=== PATIENT | male | born 1975 | race Caucasian/White ===

== ENCOUNTER 2016-05-31 14:53 | Emergency (ER) | payer OTHER ==
[~2016-05-31] VITALS: Ht 188 cm; Wt 90.7 kg
[~2016-05-31 14:53] MED LIST: AUGMENTIN 875-1 EACH PO; CITRATE OF1.75 GM/30 PO; CLONIDINE HCL0.1 MG PO; COLACE100 M1 PO; DEPAKOTE250 MG PO; DILAUDID2 M1 PO; DILAUDID2 MG PO; DOXYCYCLINE MO100 MG PO; FLEXERIL10 MG PO; IBUPROFEN800 M1 PO; INDOMETHACIN50 M1 PO; KLONOPIN0.5 M1 PO; LIORESAL 10MG T10 MG PO; MEDROL4 M1 PO; MEDROL4 M2 PO; METHADONE HYDRO10 MG PO; MIRALAX17 GM PO; OXYCODONE HCL5 M1 PO; PERCOCET 5-3251 EACH PO; REGLAN10 M1 PO; SEN-O-TABS8.6 MG PO; SUMATRIPTA6 MG/0.51; SUMATRIPTA6 MG/0.52; VOLTAREN75 MG PO; ZOFRAN ODT4 M1 PO; ZOFRAN ODT4 MG PO
--- NOTE | 2016-05-31 17:39 | ED UPPER/LOWER EXTREMITY COMPL ---
History of Present Illness General Chief Complaint: Lower Extremity Problems Stated Complaint: LEFT KNEE MASS Source: patient Exam Limitations: no limitations Vital Signs & Intake/Output Vital Signs & Intake/Output Vital Signs Date Time Temp Pulse Resp B/P Pulse O2 O2 Flow FiO2 Ox Delivery Rate 05/31 1927 97.0 96 18 120/78 96 05/31 1724 98 Room Air 05/31 1505 99.3 102 22 124/90 98 Room Air Allergies Coded Allergies: walnut (DYSPNEA 02/17/16) Reconcile Medications Clonazepam (Klonopin) 0.5 MG TABLET 1 TAB PO QPM ANXIETY (Reported) Clonidine HCl 0.1 MG TABLET 1 TAB PO TID PRN WITHDRAWL Docusate Sodium (Colace) 100 MG CAPSULE 1 CAP PO BID STOOL SOFTENER (Reported ) Hydroxyzine Pamoate (Vistaril) 50 MG CAPSULE 1 CAP PO QPM PRN INSOMNIA Ibuprofen 800 MG TABLET 1 TAB PO TID PRN PAIN Indomethacin 50 MG CAPSULE 1 CAP PO TID PRN pain with food Ketorolac Tromethamine 10 MG TABLET 1 TAB PO TID PRN PAIN METHADONE HCL (Methadone Hydrochloride) 10 MG TABLET 10 MG PO 4 TIMES/DAY PAIN (Reported) Methylprednisolone. (Medrol) 4 MG TAB.DS.PK 1 DP PO AD INFLAMMATION Metoclopramide HCl (Reglan) 10 MG TABLET 1 TAB PO 4 TIMES/DAY PRN NAUSEA 30 minutes before meals and bedtime Oxycodone HCl 5 MG TABLET 1 TAB PO 6XDAILY PAIN (Reported) Sumatriptan Succinate 6 MG/0.5 ML PEN.INJCTR 6 MG AD PRN MIGRAINES (Reported) Triage Note: PER PT L KNEE ?MASS TOLD BY [facility] TO HAVE AN MRI, PT HERE FOR 2ND OPINION, WOULD LIKE MRI PT AWARE OF WT TIME. ALSO REPORTS 20 LB WT LOSS IN 2 MONTHS Triage Nurses Notes Reviewed? yes Onset: Gradual Duration: constant Timing: recent history Severity: severe Severity Numbers: 7 HPI: Patient is a 40-year-old male who presents emergency room with a history of approximately 4-5 months of a left knee and ankle injury in which she stated that a large object fell on the inside part of his left knee and ankle which he' s been complaining of pain since. Patient states that he follow-up with the [facility] and was concerned of a "mass" to the left knee. Patient has been taking Suboxone for his pain. Patient denies any exacerbation or mechanism of injury Since. Patient states that when he was originally injured a few months ago he did not seek medical attention and has been walking on it and complaining of worsening pain. Patient does use a cane. (JANEY VARGAS) Past History Travel History Traveled to [place] past 21 day No Medical History Any Pertinent Medical History? 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 No (JANEY VARGAS) Review of Systems Review of Systems Constitutional: Reports: no symptoms. EENTM: Reports: no symptoms. Respiratory: Reports: no symptoms. Cardiovascular: Reports: no symptoms. Gastrointestinal/Abdominal: Reports: no symptoms. Genitourinary: Reports: no symptoms. Musculoskeletal: Reports: see HPI, joint pain, joint swelling. Skin: Reports: no symptoms. Neurological/Psychological: Reports: no symptoms. Hematologic/Endocrine: Reports: no symptoms. Immunological: Reports: no symptoms. All Other Systems: Reviewed and Negative (JANEY VARGAS) Physical Exam Physical Exam General Appearance: well developed/nourished, no apparent distress, alert Neurologic/Tendon: normal sensation, normal motor functions, normal tendon functions, responds to pain, no evidence tendon injury, no pulse deficit Skin: intact, normal color, warm/dry Comments: Well-developed well-nourished no apparent distress. HEENT: Atraumatic, extraocular motion intact Neck: Supple, no lymphadenopathy Back: Nontender Respiratory: No respiratory distress Extremities: Left hip normal inspection for to range of motion nontender Left knee normal inspection, full active range of motion noted medial joint line point tenderness. No erythema no warmth no swelling Negative valgus stress test negative varus stress tests Negative anterior drawer test negative posterior drawer test. Left ankle normal inspection tenderness to the medial malleoli full active range of motion noted Left foot normal inspection nontender Left leg dermatomes intact Neuro: Alert and oriented x3 Psych: Mood affect normal, normal memory normal judgment. (JANEY VARGAS) Progress Differential Diagnosis: arterial insufficiency, compartment syndrome, contusion, dislocation, DVT, fracture, gout, septic arthritis, sprain, tendon injury Plan of Care: Orders Procedure Date/time Status Regular Diet 06/01 B Active Durable Medical Equipment 05/31 1907 Active Patient does state that he had a remote history of injury in which x-ray showed concerns of a slow delayed healing to the medial aspect of patient's joint line where patient was tender. Patient was offered crutches and nonweightbearing status was advised. Patient was given copies of x-rays to follow[facility] with [facility]. Patient also was asking for medications to improve his sleep was offered however he declined this medication of the prescription. Upon discharge patient looks WELL NAD and will comply discharge instructions and had no questions. (JANEY VARGAS) Diagnostic Imaging: Viewed by Me: Radiology Read. Radiology Impression: SEE COMMENTS Comments: PATIENT: AMBER DELGADO PRESENT AGE: 40 PATIENT ACCOUNT NO: [id number] : 75 LOCATION: [facility] ORDERING PHYSICIAN: JANEY MCCARTHY SERVICE DATE: 05/31/16 EXAM TYPE: RAD - XRY-KNEE COMPLETE LEFT EXAMINATION: XR KNEE, LEFT CLINICAL INFORMATION: Medial knee pain. COMPARISON: Left knee 01/18/2016. TECHNIQUE: 4 views. FINDINGS: There is coarse periosteal reaction at the metaphysis of the tibia at the medial side of the bone. The underlying bone shows transverse radiolucency with surrounding sclerosis. Appearance appears to be of an incomplete fracture with evidence of healing. This is new since the exam of 01/18/2016. IMPRESSION: Coarse periosteal reaction with adjacent transverse radiolucency at the metaphysis at the medial side of the tibia consistent with an incomplete healing fracture. Correlate with history. PATIENT: AMBER DELGADO PRESENT AGE: 40 PATIENT ACCOUNT NO: [id number] : 75 LOCATION: [facility] ORDERING PHYSICIAN: JANEY MCCARTHY SERVICE DATE: 05/31/16 EXAM TYPE: RAD - XRY-KNEE COMPLETE LEFT EXAMINATION: XR KNEE, LEFT CLINICAL INFORMATION: Medial knee pain. COMPARISON: Left knee 01/18/2016. TECHNIQUE: 4 views. FINDINGS: There is coarse periosteal reaction at the metaphysis of the tibia at the medial side of the bone. The underlying bone shows transverse radiolucency with surrounding sclerosis. Appearance appears to be of an incomplete fracture with evidence of healing. This is new since the exam of 01/18/2016. IMPRESSION: Coarse periosteal reaction with adjacent transverse radiolucency at the metaphysis at the medial side of the tibia consistent with an incomplete healing fracture. Correlate with history. (JANEY VARGAS) Departure Departure Disposition: HOME OR SELF CARE Condition: Stable Clinical Impression Primary Impression: Left knee pain Secondary Impressions: Insomnia Referrals: ARAM HELMS,ASHLEY CLARK (PCP/Family) Additional Instructions: As discussed BEGIN TO ICE THE area directly 20 minutes every 2 hours. Begin the prescription OF ketorolac for pain and inflammation. Please follow-up with your established [facility] provider tomorrow for further EVALUATION and treatment and please give them copies of the x-rays provided to an emergency room. YOUR prescriptions waiting at the [facility] pharmacy. Begin a prescription of Vistaril to help you sleep. If symptoms worsen return to emergency room. Begin using the crutches and walk without pain. Departure Forms: Customer Survey General Discharge Information Prescriptions: Current Visit Scripts Hydroxyzine Pamoate (Vistaril) 1 CAP PO QPM PRN INSOMNIA #15 CAP Ketorolac Tromethamine 1 TAB PO TID PRN PAIN #15 TAB (JANEY VARGAS) PA/COLOR ADVISER Co-Sign Statement Statement: ED Attending supervision documentation- [] I saw and evaluated the patient. I have also reviewed all the pertinent lab results and diagnostic results. I agree with the findings and the plan of care as documented in the PA's/COLOR ADVISER's documentation. [X] I have reviewed the ED Record and agree with the PA's/COLOR ADVISER's documentation. [] Additions or exceptions (if any) to the PAs/COLOR ADVISER's note and plan are summarized below: [] (LUIS HELMS,AMBER Quijano)
--- NOTE | 2016-05-31 18:50 | RADIOLOGY REPORT ---
EXAMINATION: XR KNEE, LEFT CLINICAL INFORMATION: Medial knee pain. COMPARISON: Left knee 01/18/2016. TECHNIQUE: 4 views. FINDINGS: There is coarse periosteal reaction at the metaphysis of the tibia at the medial side of the bone. The underlying bone shows transverse radiolucency with surrounding sclerosis. Appearance appears to be of an incomplete fracture with evidence of healing. This is new since the exam of 01/18/2016. IMPRESSION: Coarse periosteal reaction with adjacent transverse radiolucency at the metaphysis at the medial side of the tibia consistent with an incomplete healing fracture. Correlate with history.
--- NOTE | 2016-05-31 18:51 | RADIOLOGY REPORT ---
EXAMINATION: XR ANKLE, LEFT CLINICAL INFORMATION: Left ankle pain. COMPARISON: Plain films of the left ankle 12/25/2012. TECHNIQUE: AP, lateral, and mortise views of the left ankle. FINDINGS: The bones and soft tissues are normal. No fracture. Alignment is anatomic. Joint spaces are maintained. No joint effusion. IMPRESSION: No acute fracture or dislocation of the left ankle.
[2016-05-31] MEDS ORDERED: VISTARIL50 M1 PO (19:09)
[2016-05-31] MEDS ORDERED: KETOROLAC TROME10 M1 PO (19:09)
[2016-05-31 19:27] VITALS: BP 120/78
[2016-10-29] MEDS ORDERED: ALPRAZOLAM1 M2 PO (11:16)
[2016-10-29] MEDS ORDERED: BACLOFEN20 M1 PO (13:49)
[2016-10-29] MEDS ORDERED: KETOROLAC TROME10 M1 PO (13:49)
== END 2016-05-31 19:29 ==
LOC: ERH 14:53
DX: M25.562 Pain in left knee (principal); G47.00 Insomnia, unspecified
CPT/HCPCS: 73562-LT; 73610-LT; 96372; J1885

== ENCOUNTER 2016-06-26 10:34 | Emergency (ER) | payer OTHER ==
[~2016-06-26] VITALS: Ht 188 cm; Wt 95.3 kg
[~2016-06-26 10:34] MED LIST changes: +KETOROLAC TROME10 M1 PO; +VISTARIL50 M1 PO
[2016-06-26 11:00] VITALS: BP 161/49
--- NOTE | 2016-06-26 11:25 | ED UPPER/LOWER EXTREMITY COMPL ---
History of Present Illness General Chief Complaint: Lower Extremity Problems Stated Complaint: LEG PAIN Source: patient Exam Limitations: no limitations Vital Signs & Intake/Output Vital Signs & Intake/Output Vital Signs Date Time Temp Pulse Resp B/P Pulse O2 O2 Flow FiO2 Ox Delivery Rate 06/26 1100 96.9 98 20 161/49 97 Room Air Room Air Allergies Coded Allergies: walnut (DYSPNEA 02/17/16) Reconcile Medications Clonazepam (Klonopin) 0.5 MG TABLET 1 TAB PO QPM ANXIETY (Reported) Clonidine HCl 0.1 MG TABLET 1 TAB PO TID PRN WITHDRAWL Docusate Sodium (Colace) 100 MG CAPSULE 1 CAP PO BID STOOL SOFTENER (Reported ) Hydroxyzine Pamoate (Vistaril) 50 MG CAPSULE 1 CAP PO QPM PRN INSOMNIA Ibuprofen 800 MG TABLET 1 TAB PO TID PRN PAIN Indomethacin 50 MG CAPSULE 1 CAP PO TID PRN pain with food Ketorolac Tromethamine 10 MG TABLET 1 TAB PO TID PRN PAIN METHADONE HCL (Methadone Hydrochloride) 10 MG TABLET 10 MG PO 4 TIMES/DAY PAIN (Reported) Methylprednisolone. (Medrol) 4 MG TAB.DS.PK 1 DP PO AD INFLAMMATION Metoclopramide HCl (Reglan) 10 MG TABLET 1 TAB PO 4 TIMES/DAY PRN NAUSEA 30 minutes before meals and bedtime Oxycodone HCl 5 MG TABLET 1 TAB PO 6XDAILY PAIN (Reported) Sumatriptan Succinate 6 MG/0.5 ML PEN.INJCTR 6 MG AD PRN MIGRAINES (Reported) Triage Note: PT TO ED "I HAVE CHRONIC PAIN, [facility], THEY ARE NOT CALLING ME BACK, I'M ON SUBOXONE FOR PAIN MANAGEMENT, AND I'M OUT OF IT, I'M GOING TO GO BACK ON METHADONE". I HAVE AN APPT ON SATURDAY. Triage Nurses Notes Reviewed? yes Onset: Gradual Duration: worse persistent since (2 DAYS) Timing: recent history Severity: moderate Severity Numbers: 8 Pain/Injury Location: Bilateral: Leg. Method of Injury: unknown Modifying Factors: Improves With: immobilization. HPI: Patient is a 40-year-old male presenting to the emergency department with chief complaint of chronic left leg pain. He reports he takes Suboxone for chronic pain. He is 2 days short, due to have a refill of his prescription for Saturday. He has yet to take his dose for today. Denies any nausea or vomiting. He does report that he is getting a migraine headache at this time for which she takes Imitrex. He tried calling his primary care physician but has not heard back yet. Denies any urinary incontinence or retention. No numbness or tingling. (BRENDEN CARDOSO) Past History Travel History Traveled to [place] past 21 day No Medical History Any Pertinent Medical History? 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 No (BRENDEN CARDOSO) Review of Systems Review of Systems Constitutional: Reports: no symptoms. Comments Review of systems: See HPI, All other systems negative. Constitutional, no chills fever or weight loss HEENT: No visual changes no sore throat no congestion Cardiovascular: No chest pain ,palpitation Skin, no jaundice no rashes Respiratory: No dyspnea cough sputum or hemoptysis GI: No nausea no vomiting : No dysuria No hematuria Muscle skeletal: no neck pain, Neurologic: No numbness no confusion Psych: No stress anxiety Immunology: No splenectomy or history of AIDS (BRENDEN CARDOSO) Physical Exam Physical Exam General Appearance: well developed/nourished, no apparent distress, alert, awake , comfortable Comments: Well-developed well-nourished person in no acute distress HEENT: . Pupils equally round and reactive to light and accommodation. Nose is atraumatic. Neck: Supple, no lymphadenopathy, normal range of motion without pain or tenderness Back: Tender to palpation in the lumbar paraspinal region. No bony tenderness. Cardiovascular:, normal JVP Respiratory: No respiratory distress. Extremity: No edema, no calf tenderness to palpation, limited range of motion of left Lorenza secondary to pain. Walks with a cane, limp favoring the left leg. Neuro: Alert oriented x3, motor sensory normal Skin: No appreciable rash on exposed skin, skin is warm and dry. Psych: Mood and affect is normal, memory and judgment is normal. (BRENDEN CARDOSO) Progress Differential Diagnosis: contusion, dislocation, fracture, sprain, CHRONIC PAIN, SPRAIN, CONTUSION, MEDICATION REFILL Plan of Care: Current Medications Sig/Josselin Start time Last Medication Dose Stop Time Status Admin Hydromorphone HCl 2 MG ONCE ONE 06/26 1129 AC (Dilaudid) 06/26 1130 Ketorolac 30 MG ONE ONE 06/26 1129 AC Tromethamine 06/26 1130 (Toradol) Sumatriptan Succinate 6 MG ONE ONE 06/26 1129 AC (Imitrex 6MG Per 06/26 1130 0.5ML Inj) Comments: Patient given dose of Imitrex for chronic migraines, also given by mouth dose of Percocet and IM Toradol. He is to follow-up with primary care physician. I told him I would not be able to provide him with a refill prescription for Suboxone or chronic pain. (BRENDEN CARDOSO) Departure Departure Time of Disposition: 1125 Disposition: HOME OR SELF CARE Condition: Stable Clinical Impression Primary Impression: Chronic pain Qualifiers: Chronic pain type: other chronic pain Qualified Code: G89.29 - Other chronic pain Referrals: ARAM HELMS,ASHLEY CLARK (PCP/Family) Additional Instructions: Follow-up with your primary care physician call to make an appointment. Continue taking Suboxone as prescribed. Return for worsening symptoms or concerns. Use [id number] Tylenol or Motrin help with other pain. Departure Forms: Customer Survey General Discharge Information (BRNEDEN CARDOSO) PA/BEER COIL CLEANER Co-Sign Statement Statement: ED Attending supervision documentation- [] I saw and evaluated the patient. I have also reviewed all the pertinent lab results and diagnostic results. I agree with the findings and the plan of care as documented in the PA's/BEER COIL CLEANER's documentation. x I have reviewed the ED Record and agree with the PA's/BEER COIL CLEANER's documentation. [] Additions or exceptions (if any) to the PAs/BEER COIL CLEANER's note and plan are summarized below: [] (JIMMY HELMS,KASSIDY)
[2016-10-29] MEDS ORDERED: ALPRAZOLAM1 M2 PO (11:16)
[2016-10-29] MEDS ORDERED: KETOROLAC TROME10 M1 PO (13:49)
[2016-10-29] MEDS ORDERED: BACLOFEN20 M1 PO (13:49)
== END 2016-06-26 11:42 ==
LOC: ERH 10:34
DX: G89.29 Other chronic pain (principal)
CPT/HCPCS: 96372; J3030

== ENCOUNTER 2016-07-02 15:08 | Emergency (ER) | payer OTHER ==
[~2016-07-02] VITALS: Ht 182.9 cm; Wt 95.3 kg
[2016-07-02 15:35] VITALS: BP 111/72
[2016-07-02] MEDS ORDERED: SUBOXONE 8 MG-1 EACH SL (16:30)
--- NOTE | 2016-07-02 16:30 | ED MVC/FALL/TRAUMA COMPLAINT ---
History of Present Illness General Chief Complaint: Fall Stated Complaint: FALL X 3 DAYS AGO, +HIT HEAD, -LOC, DIZZINESS Source: patient, old records Exam Limitations: no limitations Vital Signs & Intake/Output Vital Signs & Intake/Output Vital Signs Date Time Temp Pulse Resp B/P Pulse O2 O2 Flow FiO2 Ox Delivery Rate 07/02 1535 97.9 97 18 111/72 97 Room Air Allergies Coded Allergies: walnut (DYSPNEA, RASH 07/02/16) Reconcile Medications Buprenorphine HCl/Naloxone HCl (Suboxone 8 MG-2 MG Sl Film) 8 MG-2 MG FILM 1 STR SL 4 TIMES/DAY CHRONIC PAIN (Reported) Docusate Sodium (Colace) 100 MG CAPSULE 1 CAP PO BID STOOL SOFTENER (Reported ) Doxepin HCl 10 MG CAPSULE 1 CAP PO BID PTSD (Reported) Doxylamine Succinate (Unisom) (Unknown Strength) TABLET 2 TAB PO PRN SLEEP ( Reported) Gabapentin 400 MG CAPSULE 1 CAP PO AD UNKNOWN (Reported) Ibuprofen 800 MG TABLET 1 TAB PO TID PRN PAIN Quetiapine Fumarate (Seroquel) 100 MG TABLET 0.5 TAB PO QPM SLEEP (Reported) Sumatriptan Succinate 6 MG/0.5 ML PEN.INJCTR 6 MG AD PRN MIGRAINES (Reported) Triage Note: PT REPORTS FALLING ON ICE 3 DAYS AGO AND HITTIN HIS HEAD AND LEFT ARM. REPORTS FEELING DIZZY SINCE. DENIED NAUSEA OR VOMITING. Triage Nurses Notes Reviewed? yes HPI: 40-year-old male with chronic pain history on Suboxone here with complaints of a fall and head injury that occurred 3 days ago. 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 This occurred 3 days ago, also scraped his left elbow. He was then seen by his primary care doctor who evaluated him. No testing was deemed required as per the patient. He, today, started having worsening headache which is consistent with a migraine headaches and usually has and he is out of his usual Imitrex. He takes 6 mg subcutaneous of Imitrex several times per month Whenever He has migraine headaches. He feels as though he is getting a migraine headache and is asking for a injection of Imitrex and Toradol which was given to him a few weeks ago as well last time he was here with good relief. He denies any confusion, he denies any nausea, there is no vomiting, his headache is mild and typical migraines. He has a small abrasion noted to the left side of the scalp without any active bleeding. (STARLA MCCRARY) Past History Travel History Traveled to [place] past 21 day No Medical History Any Pertinent Medical History? 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 No (STARLA MCCRARY) Review of Systems Review of Systems Constitutional: Reports: see HPI. Eyes: Reports: no symptoms. Ears, Nose, Throat, Mouth: Reports: no symptoms. Respiratory: Reports: no symptoms. Cardiovascular: Reports: no symptoms. Gastrointestinal/Abdominal: Reports: no symptoms. Genitourinary: Reports: no symptoms. Musculoskeletal: Reports: no symptoms. Skin: Reports: no symptoms. Neurological/Psychological: Reports: see HPI. All Other Systems: Reviewed and Negative (STARLA MCCRARY) Physical Exam Physical Exam General Appearance: well developed/nourished Comments: Well-developed well-nourished no apparent distress. HEENT: Small abrasion to the left side lateral temporal region of the scalp. There is no surrounding erythema or induration, no crepitus. There is a scab noted in the areas well-healing. Pupils equally round and reactive to light, extraocular motion intact Neck: Supple, no lymphadenopathy, nontender full range of motion Back: Nontender Respiratory: No respiratory distress Extremities: No edema, full range of motion Neuro: Alert and oriented x3, cranial nerves II through XII grossly intact, gait and coordination is intact Psych: Mood affect normal, normal memory normal judgment. Skin: Warm and dry, no rash on exposed skin Core Measures ACS in differential dx? No Severe Sepsis Present: No Septic Shock Present: No (STARLA MCCRARY) Progress Differential Diagnosis: aoritic dissection, abd injury, C/T/L spine injury, ext injury, ICH, pelvis injury, pnemothorax, spinal cord injury Plan of Care: Current Medications Sig/Josselin Start time Last Medication Dose Stop Time Status Admin Ketorolac 30 MG ONCE ONE 07/02 1630 UNVr Tromethamine 07/02 1631 (Toradol) Sumatriptan Succinate 6 MG ONE ONE 07/02 1630 UNVr (Imitrex 6MG Per 07/02 1631 0.5ML Inj) Comments: tx with imitrex and toradol IM. I do not feel as though patient requires a CT scan of his head, he is acting normally, injury was 3 days ago, he is not on blood thinners. He is not confused. He'll return with any concerns (STARLA MCCRARY) Departure Departure Disposition: HOME OR SELF CARE Condition: Stable Clinical Impression Primary Impression: Minor head injury Qualifiers: Encounter type: initial encounter Qualified Code: S00.90XA - Unspecified superficial injury of unspecified part of head, initial encounter Secondary Impressions: Migraine headache Qualifiers: Migraine type: without aura Status migrainosus presence: without status migrainosus Intractability: not intractable Qualified Code: G43.009 - Migraine without aura, not intractable, without status migrainosus Referrals: ARAM HELMS,ASHLEY CLARK (PCP/Family) Additional Instructions: RETURN FOR RE EVALUTION WITH WOSRENING/SEVERE HEADACHES, NAUSEA, VOMITING OR CONFUSION. Departure Forms: Customer Survey General Discharge Information (STARLA MCCRARY) PA/WATER RESOURCE AGENT Co-Sign Statement Statement: ED Attending supervision documentation- [] I saw and evaluated the patient. I have also reviewed all the pertinent lab results and diagnostic results. I agree with the findings and the plan of care as documented in the PA's/WATER RESOURCE AGENT's documentation. [X I have reviewed the ED Record and agree with the PA's/WATER RESOURCE AGENT's documentation. [] Additions or exceptions (if any) to the PAs/WATER RESOURCE AGENT's note and plan are summarized below: [] (VANNESSA PARKER DO)
[2016-07-02] MEDS ORDERED: GABAPENTIN400 M2 PO (16:31)
[2016-07-02] MEDS ORDERED: SEROQUEL100 M1 PO (16:32)
[2016-07-02] MEDS ORDERED: DOXEPIN HCL10 MG PO (16:35)
[2016-07-02] MEDS ORDERED: UNISOM25 M1 PO (16:37)
[2016-10-29] MEDS ORDERED: ALPRAZOLAM1 M2 PO (11:16)
[2016-10-29] MEDS ORDERED: BACLOFEN20 M1 PO (13:49)
[2016-10-29] MEDS ORDERED: KETOROLAC TROME10 M1 PO (13:49)
== END 2016-07-02 16:45 ==
LOC: ERH 15:08
DX: S09.90XA Unspecified injury of head, initial encounter (principal); G43.909 Migraine, unspecified, not intractable, without status migrainosus; W19.XXXA Unspecified fall, initial encounter
CPT/HCPCS: 96372; J1885; J3030

== ENCOUNTER 2016-07-14 16:37 | Emergency (ER) | payer OTHER ==
[~2016-07-14] VITALS: Ht 189.2 cm; Wt 93.0 kg
[~2016-07-14 16:37] MED LIST changes: +DOXEPIN HCL10 MG PO; +GABAPENTIN400 M2 PO; +SEROQUEL100 M1 PO; +SUBOXONE 8 MG-1 EACH SL; +UNISOM25 M1 PO
[2016-07-14 16:49] VITALS: BP 126/88
--- NOTE | 2016-07-14 17:29 | ED GENERAL ADULT ---
History of Present Illness General Chief Complaint: Headache Stated Complaint: MED REFILL OR SHOT OF IMITREX Source: patient Exam Limitations: no limitations Vital Signs & Intake/Output Vital Signs & Intake/Output Vital Signs Date Time Temp Pulse Resp B/P Pulse O2 O2 Flow FiO2 Ox Delivery Rate 07/14 1647 98.5 110 20 126/88 96 Room Air Allergies Coded Allergies: walnut (Severe, DYSPNEA, RASH 07/14/16) Reconcile Medications Buprenorphine HCl/Naloxone HCl (Suboxone 8 MG-2 MG Sl Film) 8 MG-2 MG FILM 1 STR SL 4 TIMES/DAY CHRONIC PAIN (Reported) Buprenorphine HCl/Naloxone HCl (Suboxone 8 MG-2 MG Sl Film) 8 MG-2 MG FILM 1 STR SL DAILY CHRONIC PAIN (Reported) Docusate Sodium (Colace) 100 MG CAPSULE 1 CAP PO BID STOOL SOFTENER (Reported ) Doxepin HCl 10 MG CAPSULE 1 CAP PO BID PTSD (Reported) Doxylamine Succinate (Unisom) (Unknown Strength) TABLET 2 TAB PO PRN SLEEP ( Reported) Gabapentin 400 MG CAPSULE 1 CAP PO AD UNKNOWN (Reported) Ibuprofen 800 MG TABLET 1 TAB PO TID PRN PAIN Quetiapine Fumarate (Seroquel) 100 MG TABLET 0.5 TAB PO QPM SLEEP (Reported) Sumatriptan Succinate 6 MG/0.5 ML PEN.INJCTR 6 MG AD PRN MIGRAINES (Reported) Triage Note: TRIAGE: PT TO ER C/C MIGRAINE HEADACHE, RAN OUT OF IMITREX. Triage Nurses Notes Reviewed? yes HPI: 40-year-old man with multiple medical problems seen for evaluation of migraine/ headache. He states that he is [facility] his [facility] secondary to his previous "broken neck". He is provided a prescription of Imitrex consisting of 4 pills over 30 days, which she reports is not enough. He has a follow-up appointment "this coming Saturday/ Saturday"for which he will receive a new prescription. He also expresses multiple pain complaints throughout his body for which he is requesting "a shot of something". The headaches feel like they are starting in his neck and radiating up to his head and above his years and are constant throbbing without any associated aura. He tried taking 3 100 mg ibuprofen earlier today with no relief. No aggravating factors. Otherwise he denies any fever, chills, blurred /double vision, lightheadedness/dizziness, chest pain, palpitations, shortness of breath, nausea, vomiting, diarrhea, numbness/tingling. (SUHA PARSONS MD) Past History Travel History Traveled to [place] past 21 day No Medical History Any Pertinent Medical History? 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 No (SUHA PARSONS MD) Review of Systems Review of Systems Constitutional: Reports: see HPI. (SUHA PARSONS MD) Physical Exam Physical Exam General Appearance: well developed/nourished, mild distress Comments: General -well-developed, well-nourished middle-aged man in no acute distress HEENT - NCAT, PERRL, EOMI, anicteric sclera, moist mucous membranes Cardio - S1, S2 w/o murmurs/gallops/rubs Resp - CTA bilaterally w/o wheezing/rhochi/crackles GI - soft, nontender, nondistended, bowel sounds present Neuro - Awake and alert, CN II - XII grossly intact Extremities - no edema, pulses intact Core Measures ACS in differential dx? No CVA/TIA Diagnosis: No Severe Sepsis Present: No Septic Shock Present: No (SUHA PARSONS MD) Progress Differential Diagnoses I considered the following diagnoses in my evaluation of the patient: Headache, migraine Plan of Care: Current Medications Sig/Josselin Start time Last Medication Dose Stop Time Status Admin Sumatriptan Succinate 25 MG ONCE ONE 07/14 1814 CAN (Imitrex TAB) 07/14 1815 Initial ED EKG: none Comments: Given patient's history of multiple pain complaints previously maintained on methadone, now on Suboxone seen for evaluation of migraine that is not responsive to NSAID medications it is reasonable to believe that patient is having a migraine. His history of present illness and description of his headache do not clearly fit the definition of a migraine, however he reports adequate response to triptan medications for these headaches in the past. (SUHA PARSONS MD) Departure Departure Disposition: HOME OR SELF CARE Condition: Stable Clinical Impression Primary Impression: Headache Qualifiers: Headache type: tension-type Headache chronicity pattern: acute headache Intractability: intractable Qualified Code: G44.201 - Tension-type headache, unspecified, intractable Referrals: ARAM HELMS,ASHLEY CLARK (PCP/Family) Additional Instructions: [facility] and a renewal of her Imitrex medication. Call 911 or return to the ED should your symptoms worsen or if you develop fever , confusion. Departure Forms: Customer Survey General Discharge Information (SUHA PARSONS MD) Resident Co-Sign Statement Statement: ED Attending supervision documentation- [x] I saw and evaluated the patient. I have also reviewed all the pertinent lab results and diagnostic results. I agree with the findings and the plan of care as documented in the Resident's documentation. [] I have reviewed the ED Record and agree with the Resident's documentation. [] Additions or exceptions (if any) to the Resident's note and plan are summarized below: [] (LAURYN HELMS,VANNESSA Reveles) Critical Care Note Critical Care Note Critical Care Time: non-applicable (SUHA PARSONS MD)
[2016-07-14] MEDS ORDERED: SUBOXONE 8 MG-1 EACH SL (18:06)
[2016-10-29] MEDS ORDERED: ALPRAZOLAM1 M2 PO (11:16)
[2016-10-29] MEDS ORDERED: KETOROLAC TROME10 M1 PO (13:49)
[2016-10-29] MEDS ORDERED: BACLOFEN20 M1 PO (13:49)
== END 2016-07-14 18:31 ==
LOC: ERH 16:37
DX: R51 Headache (principal)
CPT/HCPCS: 96372; J1885; J3030

== ENCOUNTER 2016-08-17 11:40 | Emergency (ER) | payer OTHER ==
[~2016-08-17] VITALS: Ht 188 cm; Wt 102.1 kg
[2016-08-17 11:45] VITALS: BP 136/86
--- NOTE | 2016-08-17 11:55 | ED UPPER/LOWER EXTREMITY COMPL ---
History of Present Illness General Chief Complaint: Lower Extremity Injury Stated Complaint: L LEG PAIN Source: patient, old records Exam Limitations: no limitations Vital Signs & Intake/Output Vital Signs & Intake/Output Vital Signs Date Time Temp Pulse Resp B/P Pulse O2 O2 Flow FiO2 Ox Delivery Rate 08/17 1145 97.0 96 20 136/86 97 Room Air Allergies Coded Allergies: walnut (Severe, DYSPNEA, RASH 07/14/16) Reconcile Medications Buprenorphine HCl/Naloxone HCl (Suboxone 8 MG-2 MG Sl Film) 8 MG-2 MG FILM 1 STR SL 4 TIMES/DAY CHRONIC PAIN (Reported) Doxepin HCl 10 MG CAPSULE 1 CAP PO BID PTSD (Reported) Gabapentin 400 MG CAPSULE 1 CAP PO AD UNKNOWN (Reported) Quetiapine Fumarate (Seroquel) 100 MG TABLET 0.5 TAB PO QPM SLEEP (Reported) Triage Note: PT C/O LEFT KNEE AND LEFT LEG PAIN. [facility] AND WAS TOLD HE COULD HAVE CANCER. PAIN HAS BEEN ONGOING FOR 8 MONTHS, PT DENIES INJURY TO LEG Triage Nurses Notes Reviewed? yes Onset: Gradual Duration: X 8 MONTHS INTERMITTENT Timing: recent history Severity: mild, moderate Severity Numbers: 7 Pain/Injury Location: Left: Leg. Method of Injury: unknown No Modifying Factors: none Associated Symptoms: none HPI: 41-year-old male presents emergency room with history of chronic left leg pain that has been going on for the past 8 months, chronic neck and back pain currently on [facility] presents to emergency room today for evaluation complaining of exacerbation of his left knee and lower leg pain. He denies any new injury or trauma however states that he was doing some work yesterday and believes he may have overdid it. He denies any swelling to his knee. The pain is aching and throbbing intermittent in nature waxing and waning in intensity sudden in onset. He denies any rashes or swelling to his leg. There is no chest pain shortness of breath nausea or vomiting. The patient states that he's been here in the past Toradol IM has helped no numbness or tingling. The patient states he was initially told that it may be cancer in his leg however old records reviewed from previous x-rays have shown a possible incomplete healing fracture (SYD MCCARTHY,JANEY) Past History Travel History Traveled to [place] past 21 day No Medical History Any Pertinent Medical History? 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 No (JANEY YANCEY) Review of Systems Review of Systems Constitutional: Reports: see HPI. All Other Systems: Reviewed and Negative Comments Review of systems: See HPI, All other systems negative. Constitutional, no chills no fever, no malaise HEENT: No visual changes no sore throat no congestion Cardiovascular: No chest pain , no palpitation Skin, no rashes, no change in skin Respiratory: No dyspnea no cough no sputum GI: No nausea no vomiting, no diarrhea, : No dysuria No hematuria, Muscle skeletal: joint pain, no joint swelling, no back pain, no neck pain, Neurologic: No numbness no headache Psych: No stress Heme/endocrine: No bruising no bleeding Immunology: No lymphadenopathy (JANEY YANCEY) Physical Exam Physical Exam General Appearance: well developed/nourished, no apparent distress, alert, awake Comments: Well-developed well-nourished patient in no apparent distress. HEENT: Atraumatic, extraocular motion intact Neck: Supple, FROM, no lymphadenopathy Back: FROM, Nontender Cardiovascular: Regular rate and rhythms no murmurs rubs or gallops, Respiratory: Chest nontender.There were no bony deformities, no asymmetry. No respiratory distress. Patient speaking in full complete sentences. Breath sounds clear to auscultation bilaterally: NO W/R/R Upper Extremities: full range of motion Hip/Pelvis: Atraumatic/Stable. FROM. Knee: Atraumatic/stable. FROM. No joint swelling, no effusion. No laxity. No pain with ROM Leg: Atraumatic. Nontender. No edema, 5 out of 5 strength in the lower extremity, normal dorsiflexion of great toe bilaterally, gross sensation is intact, patellar tendon reflex 2+ bilaterally. Ankle/Foot: Atraumatic/stable. Skin intact. FROM. No swelling, no effusion. No laxity on exam Pulses: Normal/equal DP/PT pulses bilaterally. Brisk cap refill Neuro: Alert and oriented x3 Skin: Warm & dry;No appreciable rash on exposed skin Psych: Mood affect normal, normal memory normal judgment. (JANEY YANCEY) Progress Differential Diagnosis: cellulitis, compartment syndrome, contusion, dislocation , DVT, fracture, gout, sprain, tendon injury, MALIGNANCY Plan of Care: Old records reviewed patient is been seen numerous times in the past for similar symptoms x-rays from May 2016 were reviewed. The patient will be medicated with Toradol 60 mg IM I advised he have close follow-up with his primary care physician on Saturday, return with any concerns. Copy of his previous x-ray with right patient and he feels comfortable this plan I answered all his questions IMPRESSION: Coarse periosteal reaction with adjacent transverse radiolucency at the metaphysis at the medial side of the tibia consistent with an incomplete healing fracture. Correlate with history. DICTATED BY: DARA SELLERS MD DATE/TIME DICTATED:05/31/161843 [place]:TIMOTHY DATE/TIME TRANSCRIBED:05/31/161843 (JANEY YANCEY) Departure Departure Time of Disposition: 1205 Disposition: HOME OR SELF CARE Condition: Stable Clinical Impression Primary Impression: Chronic leg pain Referrals: ARAM HELMS,ASHLEY CLARK (PCP/Family) Additional Instructions: [facility] continue taking your medications as prescribed rest ice as needed.a copy of your previous xray is in your dsicharge paperwor Departure Forms: Customer Survey General Discharge Information (JANEY YANCEY) PA/IDENTIFICATION AND RECORDS COMMANDER Co-Sign Statement Statement: ED Attending supervision documentation- [] I saw and evaluated the patient. I have also reviewed all the pertinent lab results and diagnostic results. I agree with the findings and the plan of care as documented in the PA's/IDENTIFICATION AND RECORDS COMMANDER's documentation. [X] I have reviewed the ED Record and agree with the PA's/IDENTIFICATION AND RECORDS COMMANDER's documentation. [] Additions or exceptions (if any) to the PAs/IDENTIFICATION AND RECORDS COMMANDER's note and plan are summarized below: [] (VANNESSA PARKER DO
[2016-10-29] MEDS ORDERED: ALPRAZOLAM1 M2 PO (11:16)
[2016-10-29] MEDS ORDERED: KETOROLAC TROME10 M1 PO (13:49)
[2016-10-29] MEDS ORDERED: BACLOFEN20 M1 PO (13:49)
== END 2016-08-17 12:13 ==
LOC: ERH 11:40
DX: G89.29 Other chronic pain (principal); M79.605 Pain in left leg
CPT/HCPCS: 96372; J1885